=== PATIENT | female | born 1950 | race African-American/Black ===

== ENCOUNTER 2018-10-07 15:22 | Emergency (ER) | payer OTHER, MEDICAID ==
[~2018-10-07] VITALS: Ht 162.6 cm; Wt 63.5 kg
[2018-10-07] MEDS ORDERED: IBUPROFEN 400MG TABLET PO ONE (16:00)
[2018-10-07 18:28] VITALS: BP 157/89
== END 2018-10-07 18:28 | disposition home or self-care (01) ==
LOC: ER 15:22
DX: R51 Headache (principal); M25.552 Pain in left hip; H40.9 Unspecified glaucoma; E78.00 Pure hypercholesterolemia, unspecified; W01.0XXA Fall on same level from slipping, tripping and stumbling without subsequent striking against object, initial encounter; Y93.89 Activity, other specified; Y92.89 Other specified places as the place of occurrence of the external cause; Z88.0 Allergy status to penicillin
CPT/HCPCS: 73502; 99284